=== PATIENT | male | born 1940 | race American Indian/Alaskan Native ===

== ENCOUNTER 2022-07-26 15:57 | Emergency (ER) | payer MEDICARE ==
[2022-07-26 17:59] VITALS: BP 159/84
--- NOTE | 2022-07-26 22:16 | Cat Scan Report ---
CT HEAD WITHOUT CONTRAST INDICATION / CLINICAL INFORMATION: headache, head injury. TECHNIQUE: All CT scans at this location are performed using CT dose reduction for ALARA by means of automated exposure control. COMPARISON: February 2022 FINDINGS: HEMORRHAGE: None. EXTRA-AXIAL SPACES: Markedly prominent likely related to cortical atrophy. VENTRICULAR SYSTEM: Markedly enlarged likely related to central atrophy. 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 No acute territorial infarct. Additional multifocal areas of low-attenuation change within the left thalamus a nd right basal ganglia similar to previous consistent with remote infarct. MIDLINE SHIFT / HERNIATION: None. CEREBELLUM / BRAINSTEM: No significant abnormality. ORBITS: Normal as visualized. SOFT TISSUES: No significant abnormality. SKULL: No significant abnormality. PARANASAL SINUSES / MASTOID AIR CELLS: Normal as visualized. ADDITIONAL FINDINGS: None. IMPRESSION: 1. 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 Signer Name: Barbara Tang MD Signed: 07/26/2022 10:11 PM Workstation Name: [employer]
== END 2022-07-27 03:41 | disposition left against medical advice (07) ==
LOC: ED 15:57
DX: Z00.00 Encounter for general adult medical examination without abnormal findings (principal); Z53.21 Procedure and treatment not carried out due to patient leaving prior to being seen by health care provider; R51.9 Headache, unspecified; W19.XXXA Unspecified fall, initial encounter; Y93.89 Activity, other specified; Y92.89 Other specified places as the place of occurrence of the external cause; Y99.8 Other external cause status
CPT/HCPCS: 70450